=== PATIENT | male | born 1995 | race Caucasian/White ===

== ENCOUNTER 2016-08-16 15:20 | Emergency (ER) | payer OTHER ==
[2016-08-16] MEDS ORDERED: NORMAL SALINE 1000 ML 1,000 ML IV ONE ×3 (16:30→19:16)
[2016-08-16 16:48] LABS: APPEARANCE,URINE CLEAR; BILIRUBIN,URINE NEGATIVE (NEGATIVE); GLUCOSE, URINE NEGATIVE (NEGATIVE); KETONES,URINE NEGATIVE (NEGATIVE); LEUKOCYTE ESTERASE,URINE NEGATIVE (NEGATIVE); NITRITE,URINE NEGATIVE (NEGATIVE); PROTEIN,URINE NEGATIVE (NEGATIVE); URINE SPECIFIC GRAVITY 1.009; UROBILINOGEN,URINE NEGATIVE mg/dL (<2.0)
[2016-08-16 16:51] LABS: ABSOLUTE BASOPHILS # (AUTO) 0.1 10^3/uL (0.0-0.2); ABSOLUTE EOSINOPHILS # (AUTO) 0.2 10^3/uL (0.0-0.6); ABSOLUTE MONOCYTES (AUTO) 0.8 10^3/uL (0.1-1.4); ABSOLUTE NEUT (AUTO) 4.5 10^3/uL (1.7-8.2); EOSINOPHILS % (AUTO) 2.8 % (0-6); HEMOGLOBIN 14.5 g/dL (13.5-17.0); HGB HCT DIFFERENCE 0.5; LYMPHOCYTES % (AUTO) 26.3 % (13-45); MEAN CORPUSCULAR HEMOGLOBIN 29.7 pg (27.0-33.4); MEAN CORPUSCULAR HGB CONC 33.7 g/dL (32.0-36.0); MEAN CORPUSCULAR VOLUME 88 fl (80-97); MONOCYTES % (AUTO) 10.7 % (3-13); RED BLOOD COUNT 4.87 10^6/uL (4.35-5.55); RED CELL DISTRIBUTION WIDTH 13.2 % (11.5-14.0); SEGMENTED NEUTROPHILS % (AUTO) 59.2 % (42-78); WHITE BLOOD COUNT 7.6 10^3/uL (4.0-10.5)
--- NOTE | 2016-08-16 16:58 | RADIOLOGY REPORT (SQ) ---
EXAM DESCRIPTION: CHEST PA/LAT COMPLETED DATE/TIME: 08/16/2016 4:42 pm REASON FOR STUDY: CP COMPARISON: None. EXAM PARAMETERS: NUMBER OF VIEWS: two views TECHNIQUE: Digital Frontal and Lateral radiographic views of the chest acquired. RADIATION DOSE: NA LIMITATIONS: none FINDINGS: LUNGS AND PLEURA: No opacities, masses or pneumothorax. No pleural effusion. MEDIASTINUM AND HILAR STRUCTURES: No masses or contour abnormalities. HEART AND VASCULAR STRUCTURES: Heart normal size. No evidence for failure. BONES: No acute findings. HARDWARE: None in the chest. OTHER: No other significant finding. IMPRESSION: NO SIGNIFICANT RADIOGRAPHIC FINDING IN THE CHEST. TECHNICAL DOCUMENTATION: JOB ID: [id number] [employer]- All Rights Reserved
[2016-08-16 17:00] LABS: URINE BARBITURATES SCREEN NEGATIVE; URINE METHADONE SCREEN NEGATIVE; URINE OPIATES LOW NEGATIVE; URINE PHENCYCLIDINE SCREEN NEGATIVE
--- NOTE | 2016-08-16 17:01 | ER Document Report ---
ED Cardiac - General Information source: Patient TRAVEL OUTSIDE OF THE [place] IN LAST 30 DAYS: No - HPI Patient complains to provider of: Chest pain, Chest tightness Associated symptoms: Other - see above <JESICA RO - Last Filed: 08/16/16 21:14> <JACK HOLLINGSWORTH - Last Filed: 08/16/16 22:49> - General Chief Complaint: Chest Pain Stated Complaint: DIZZINESS Time Seen by Provider: 08/16/16 16:15 Notes: Patient is a 20 year old male who presents to the ED with complaints of intermittent chest pain for the past month. Patient states on or Wednesday of this last week he started having syncopal episodes. Patients [place] [facility] [place] feeling heart palpitations and states [place] "[place]". Today patient was walking to the fridge when symptoms presented. Patient states it feels like a tightness in his chest and sometimes a sharp pain. Patient states his symptoms are exacerbated by exertion and he also has SOB with exertion which is new for him. Patient is not on any daily medication and is not taking any supplements. Patient has never had surgery and states he is allergic to all "cillins". Patient has an extensive family history of heart disease. Patient denies any recent travel. Patient is not currently in any pain. No other concerns or complaints at this time. (JESICA RO) Past Medical History - General Information source: Patient - Social History Smoking Status: Never Smoker Chew tobacco use (# tins/day): Yes - dips Frequency of alcohol use: Social Drug Abuse: None Family History: Other - heart disease Patient has suicidal ideation: No Patient has homicidal ideation: No Renal/ Medical History: Denies: Hx Peritoneal Dialysis <JESICA RO - Last Filed: 08/16/16 21:14> Review of Systems - Review of Systems Constitutional: No symptoms reported EENT: No symptoms reported Cardiovascular: See HPI, Chest pain, Palpitations, Syncope Respiratory: See HPI, Short of breath Gastrointestinal: No symptoms reported Genitourinary: No symptoms reported Male Genitourinary: No symptoms reported Musculoskeletal: No symptoms reported Skin: No symptoms reported Hematologic/Lymphatic: No symptoms reported Neurological/Psychological: No symptoms reported <JESICA RO - Last Filed: 08/16/16 21:14> Physical Exam - General General appearance: Appears well, Alert In distress: None - HEENT Head: Normocephalic, Atraumatic Eyes: Normal Pupils: PERRL Ears: Other - cauliflower ear on the right - Respiratory Respiratory status: No respiratory distress Breath sounds: Normal - Cardiovascular Rhythm: Regular Heart sounds: Normal auscultation Murmur: No - Abdominal Inspection: Normal Distension: No distension Tenderness: Nontender - Back Back: Normal - Extremities General upper extremity: Normal inspection, Normal ROM General lower extremity: Normal inspection, Normal ROM - Neurological Neuro grossly intact: Yes Cognition: Normal Orientation: AAOx4 Peter Coma Scale Eye Opening: Spontaneous [place] Coma Scale Verbal: Oriented Peter Coma Scale Motor: Obeys Commands [place] Coma Scale Total: 15 Speech: Normal - Psychological Associated symptoms: Normal affect, Normal mood - Skin Skin Temperature: Warm Skin Moisture: Dry Skin Color: Normal <JESICA RO - Last Filed: 08/16/16 21:14> Course - Laboratory Result Diagrams: 08/16/16 16:28 08/16/16 16:28 <JESICA RO - Last Filed: 08/16/16 21:14> - Laboratory Result Diagrams: 08/16/16 16:28 08/16/16 16:28 <JACK HOLLINGSWORTH - Last Filed: 08/16/16 22:49> - Re-evaluation Re-evalutation: 08/16/16 21:14 Patient is now feeling worse than when he first came in. (JESICA RO) 08/16/16 22:02 Patient is a 20-year-old male who came in for dizziness, chest pressure, and was found to be in rhabdomyolysis. Patient was given 3 L of fluid. Patient's CK is downtrending. Patient was initially feeling better, and stated that he was feeling worse. Patient had apparently recently quickly eaten a big meal that his significant other brought for him. He feels better at this time. Discussed doing a CT of the patient's chest. He does not feel like this is necessary would like to go home. Of note, the patient started and called to see if he could go out in the field tomorrow. Informed him that I did not think that was a good idea due to the elevated CK, potential for further muscle breakdown in potential for acute kidney injury. Patient will be discharged home. He is not to take any supplements, drink any energy drinks, take any pills of any kind. Return if any worsening or concerning symptoms. Understands and agrees with plan. Stable for discharge. (JACK HOLLINGSWORTH ) - Vital Signs Vital signs: Temp Pulse Resp BP Pulse Ox 97.9 F 64 18 128/62 H 100 08/16/16 22:05 08/16/16 22:05 08/16/16 22:05 08/16/16 22:05 08/16/16 22:05 - Laboratory Laboratory results interpreted by me: 08/16/16 08/16/16 08/16/16 16:28 16:28 20:34 AST 199 H ALT 124 H Creatine Kinase 2257 H 1410 H CK-MB (CK-2) 7.30 H Discharge <JESIAC RO - Last Filed: 08/16/16 21:14> <JACK HOLLINGSWORTH - Last Filed: 08/16/16 22:49> - Discharge Clinical Impression: Atypical chest pain Rhabdomyolysis Qualifiers: Rhabdomyolysis type: non-traumatic Qualified Code(s): M62.82 - Rhabdomyolysis Condition: Stable Disposition: HOME, SELF-CARE Instructions: Dehydration ([facility]) Additional Instructions: Please drink plenty of fluids. Please avoid workouts for the next week. Please do not take any supplements. Forms: Return to Work Scribe Attestation: 08/16/16 22:49 I personally performed the services described in the documentation, reviewed and edited the documentation which was dictated to the scribe in my presence, and it accurately records my words and actions. (JACK HOLLINGSWORTH) Scribe Documentation - Scribe Written by Raza:: raza Bowman, 08/16/2016, 1728 acting as scribe for :: Mary <JESICA RO - Last Filed: 08/16/16 21:14>
[2016-08-16 17:10] LABS: ALANINE AMINOTRANSFERASE 124 U/L (21-72); ALBUMIN 4.5 g/dL (3.5-5.0); ALKALINE PHOSPHATASE 97 U/L (38-126); ANION GAP 10 (5-19); ASPARTATE AMINO TRANSFERASE 199 U/L (17-59); BILIRUBIN,DIRECT 0.4 mg/dL (0.0-0.4); BILIRUBIN,TOTAL 0.5 mg/dL (0.2-1.3); BLOOD UREA NITROGEN 18 mg/dL (7-20); CALCIUM 9.5 mg/dL (8.4-10.2); CARBON DIOXIDE 29 mmol/L (22-30); CHLORIDE 103 mmol/L (98-107); CREATININE RESULT 1.05 mg/dL (0.52-1.25); GLUCOSE 79 mg/dL (75-110); POTASSIUM 4.4 mmol/L (3.6-5.0); SODIUM 142.2 mmol/L (137-145); TOTAL PROTEIN 7.8 g/dL (6.3-8.2)
[2016-08-16 17:17] LABS: CREATINE KINASE 2257 U/L (55-170)
[2016-08-16 17:25] LABS: TROPONIN I < 0.012 ng/mL
--- NOTE | 2016-08-16 18:01 | EKG REPORT ---
SEVERITY:- NORMAL ECG - SINUS RHYTHM : Confirmed by: Ever Roman MD 16-Aug-2016 17:59:58
[2016-08-16] MEDS ORDERED: ONDANSETRON HCL INJ/PF 4 MG/2 ML SDV IV ONE (21:14)
[2016-08-16 22:05] VITALS: BP 132/65
== END 2016-08-16 22:05 | disposition home or self-care (01) ==
LOC: ER 15:20
DX: M62.82 Rhabdomyolysis (principal); R07.89 Other chest pain; R55 Syncope and collapse; R06.02 Shortness of breath; R00.2 Palpitations; M95.11 Cauliflower ear, right ear; Z88.0 Allergy status to penicillin; Z82.49 Family history of ischemic heart disease and other diseases of the circulatory system; Z72.0 Tobacco use
CPT/HCPCS: 93005; 99285; 36415; 82553; 82550; 84443; 85025; 80053; 81001; 84484; 80307; 71020; 93010; J7030

== ENCOUNTER 2016-10-26 17:43 | Emergency (ER) | payer OTHER ==
--- NOTE | 2016-10-26 18:23 | ER Document Report ---
ED Medical Screen (RME) - General Chief Complaint: Chest Pain Stated Complaint: CHEST DISCOMFORT Time Seen by Provider: 10/26/16 18:16 Mode of Arrival: Ambulatory Information source: Patient Notes: 21-year-old male presents with complaints of chest pain intermittently over the past 2 months. Patient was seen here with rhabdo elevated liver enzymes, has been seen at the level multiple times for similar complaints, patient states he is supposed to have an echo performed I have greeted and performed a rapid initial assessment of this patient. A comprehensive ED assessment and evaluation of the patient, analysis of test results and completion of the medical decision making process will be conducted by additional ED providers. PHYSICAL EXAMINATION: GENERAL: Well-appearing, well-nourished and in no acute distress. HEAD: Atraumatic, normocephalic. EYES: Pupils equal round extraocular movements intact, conjunctiva are normal. ENT: Nares patent NECK: Normal range of motion LUNGS: No respiratory distress Musculoskeletal: Normal range of motion NEUROLOGICAL: Normal speech, normal gait. PSYCH: Normal mood, normal affect. SKIN: Warm, Dry, normal turgor, no rashes or lesions noted. TRAVEL OUTSIDE OF THE [place] IN LAST 30 DAYS: No - Related Data Allergies/Adverse Reactions: pcn Allergy (Uncoded 10/26/16 17:52) Past Medical History - Social History Frequency of alcohol use: Rare Drug Abuse: None Renal/ Medical History: Denies: Hx Peritoneal Dialysis Physical Exam - Vital signs Vitals: Temp Pulse Resp BP Pulse Ox 98.8 F 76 18 143/77 H 98 10/26/16 17:55 10/26/16 17:55 10/26/16 17:55 10/26/16 17:55 10/26/16 17:55 Course - Vital Signs Vital signs: Temp Pulse Resp BP Pulse Ox 98.8 F 76 18 143/77 H 98 10/26/16 17:55 10/26/16 17:55 10/26/16 17:55 10/26/16 17:55 10/26/16 17:55
[2016-10-26 18:46] LABS: ABSOLUTE BASOPHILS # (AUTO) 0.1 10^3/uL (0.0-0.2); ABSOLUTE EOSINOPHILS # (AUTO) 0.2 10^3/uL (0.0-0.6); ABSOLUTE LYMPHOCYTES (AUTO) 2.4 10^3/uL (0.5-4.7); ABSOLUTE MONOCYTES (AUTO) 0.9 10^3/uL (0.1-1.4); BASOPHILS % (AUTO) 0.7 % (0-2); EOSINOPHILS % (AUTO) 2.1 % (0-6); HEMOGLOBIN 15.4 g/dL (13.5-17.0); HGB HCT DIFFERENCE 3.2; LYMPHOCYTES % (AUTO) 28.5 % (13-45); MEAN CORPUSCULAR HEMOGLOBIN 30.8 pg (27.0-33.4); MEAN CORPUSCULAR HGB CONC 35.8 g/dL (32.0-36.0); MEAN CORPUSCULAR VOLUME 86 fl (80-97); MONOCYTES % (AUTO) 10.6 % (3-13); RED BLOOD COUNT 5.01 10^6/uL (4.35-5.55); RED CELL DISTRIBUTION WIDTH 13.1 % (11.5-14.0); SEGMENTED NEUTROPHILS % (AUTO) 58.1 % (42-78); WHITE BLOOD COUNT 8.6 10^3/uL (4.0-10.5)
[2016-10-26 19:08] LABS: ALANINE AMINOTRANSFERASE 73 U/L (21-72); ALKALINE PHOSPHATASE 108 U/L (38-126); ANION GAP 12 (5-19); ASPARTATE AMINO TRANSFERASE 36 U/L (17-59); BILIRUBIN,DIRECT 0.4 mg/dL (0.0-0.4); BILIRUBIN,TOTAL 0.4 mg/dL (0.2-1.3); BLOOD UREA NITROGEN 18 mg/dL (7-20); CALCIUM 10.4 mg/dL (8.4-10.2); CARBON DIOXIDE 29 mmol/L (22-30); CHLORIDE 101 mmol/L (98-107); CREATINE KINASE 163 U/L (55-170); CREATININE RESULT 1.11 mg/dL (0.52-1.25); GLUCOSE 97 mg/dL (75-110); POTASSIUM 4.6 mmol/L (3.6-5.0); SODIUM 141.7 mmol/L (137-145); TOTAL PROTEIN 8.2 g/dL (6.3-8.2)
[2016-10-26 19:19] LABS: CREATINE KINASE MB 1.45 ng/mL (<4.55)
[2016-10-26 19:21] LABS: TROPONIN I < 0.012 ng/mL
--- NOTE | 2016-10-26 19:26 | EKG REPORT ---
SEVERITY:- NORMAL ECG - SINUS RHYTHM : Confirmed by: Ever Roman MD 26-Oct-2016 19:25:19
--- NOTE | 2016-10-26 19:56 | RADIOLOGY REPORT (SQ) ---
EXAM DESCRIPTION: CTA CHEST COMPLETED DATE/TIME: 10/26/2016 7:07 pm REASON FOR STUDY: sob chest pain COMPARISON: Chest x-ray dated August 2016 TECHNIQUE: CT scan of the chest performed using helical scanning technique with dynamic intravenous contrast injection. Images reviewed with lung, soft tissue and bone windows. Reconstructed coronal and sagittal MPR images reviewed. Additional 3 dimensional post-processing performed to develop Maximal Intensity Projection images (ME P). All images stored on PACS. All CT scanners at this facility use dose modulation, iterative reconstruction, and/or weight based d osing when appropriate to reduce radiation dose to as low as reasonably achievable (ALARA). [facility]: Dose Right [facility]: CareDose [facility]: Dose Right [facility]: Teradose 4D [facility]: BrickTrends CONTRAST TYPE AND DOSE: contrast/concentration: Isovue 370.00 mg/ml; Total Contrast Delivered: 78.0 ml; Total Saline Delivered: 75.0 ml Contrast bolus optimized for the pulmonary arteries. Not diagnostic for the aorta. RENAL FUNCTION: None required. The patient is less than 50 years old. RADIATION DOSE: Up-to-date CT equipment and radiation dose reduction techniques were employed. CTDIv ol: 16.5 - 17.8 mGy. DLP: 648 mGy-cm. . LIMITATIONS: None. FINDINGS: LUNGS AND PLEURA: No masses, infiltrates, pneumothorax. No pleural effusions, calcificati ons. AORTA AND GREAT VESSELS: No aneurysm. Contrast bolus not optimized for the aorta. HEART: No pericardial effusion. No significant coronary artery calcifications. PULMONARY ARTERIES: No emboli visualized in the main pulmonary arteries or the segmental branches. HILAR AND MEDIASTINAL STRUCTURES: Soft tissue density is identified in the anterior mediastinum most consistent with thymic tissue although other etiologies cannot be excluded. HARDWARE: None in the chest. UPPER ABDOMEN: No significant findings. Limited exam. THYROID AND OTHER SOFT TISSUES: No masses. No adenopathy. BONES: No acute or significant finding. 3D MIPS: Confirm above findings. OTHER: No other significant finding. IMPRESSION: No acute consolidations or pleural effusions are identified. No evidence for pulmonary embolic disease. Other findings as noted above. COMMENT: Quality ID # [id number]: Final reports with documentation of one or more dose reduction techniques (e.g., Automated exposure control, adjustment of the mA and/or kV according to patient size, use of iterative reconstruction technique) TECHNICAL DOCUMENTATION: JOB ID: [id number] [facility] [employer]- All Rights Reserved
--- NOTE | 2016-10-26 20:24 | ER Document Report ---
ED General - General Chief Complaint: Chest Pain Stated Complaint: CHEST DISCOMFORT Time Seen by Provider: 10/26/16 18:16 Mode of Arrival: Ambulatory TRAVEL OUTSIDE OF THE [place] IN LAST 30 DAYS: No - HPI Patient complains to provider of: Chest discomfort Notes: Patient coming in for evaluation of chest discomfort. 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 Patient has had multiple evaluations at [facility] with no clear-cut etiology. Patient states he is working on scheduling a echocardiogram patient otherwise denies any recent travel denies any fevers chills nausea vomiting states pain is always constant with no relief does not exacerbate with touch palpation exacerbated with activities. Patient currently states that he is not performing any PT. Denies any other medical history denies smoking alcohol use or drugs - Related Data Allergies/Adverse Reactions: pcn Allergy (Uncoded 10/26/16 17:52) Past Medical History - General Information source: Patient - Social History Smoking Status: Never Smoker Frequency of alcohol use: Rare Drug Abuse: None Family History: Other - heart disease Patient has suicidal ideation: No Renal/ Medical History: Denies: Hx Peritoneal Dialysis Review of Systems - Review of Systems Constitutional: No symptoms reported EENT: No symptoms reported Cardiovascular: Chest pain Respiratory: No symptoms reported Gastrointestinal: No symptoms reported Genitourinary: No symptoms reported Male Genitourinary: No symptoms reported Musculoskeletal: No symptoms reported Skin: No symptoms reported Hematologic/Lymphatic: No symptoms reported Neurological/Psychological: No symptoms reported -: Yes All other systems reviewed and negative Physical Exam - Vital signs Vitals: Temp Pulse Resp BP Pulse Ox 98.8 F 76 18 143/77 H 98 10/26/16 17:55 10/26/16 17:55 10/26/16 17:55 10/26/16 17:55 10/26/16 17:55 Interpretation: Normal - General General appearance: Appears well, Alert - HEENT Head: Normocephalic, Atraumatic Eyes: Normal Pupils: PERRL - Respiratory Respiratory status: No respiratory distress Chest status: Nontender Breath sounds: Normal Chest palpation: Normal - Cardiovascular Rhythm: Regular Heart sounds: Normal auscultation Murmur: No - Abdominal Inspection: Normal Distension: No distension Bowel sounds: Normal Tenderness: Nontender Organomegaly: No organomegaly - Back Back: Normal, Nontender - Extremities General upper extremity: Normal inspection, Nontender, Normal color, Normal ROM , Normal temperature General lower extremity: Normal inspection, Nontender, Normal color, Normal ROM , Normal temperature, Normal weight bearing. No: Ara's sign - Neurological Neuro grossly intact: Yes Cognition: Normal Orientation: AAOx4 Peter Coma Scale Eye Opening: Spontaneous [place] Coma Scale Verbal: Oriented Peter Coma Scale Motor: Obeys Commands [place] Coma Scale Total: 15 Speech: Normal Motor strength normal: LUE, RUE, LLE, RLE Sensory: Normal - Psychological Associated symptoms: Normal affect, Normal mood - Skin Skin Temperature: Warm Skin Moisture: Dry Skin Color: Normal Course - Re-evaluation Re-evalutation: 10/26/16 22:39 The patient has atypical chest pain as the patient's chest pain is not suggestive of pulmonary embolus, cardiac ischemia, aortic dissection, or other serious etiology. Given the extremely low risk of these diagnoses further testing and evaluation for these possibilities does not appear to be indicated at this time. The patient has been instructed to return if the symptoms worsen or change in any way. Review results of CT scan showing tissue in the mediastinum consistent with thalamic tissue however encouraged patient to take results to his health home care specialist for further evaluation. - Vital Signs Vital signs: Temp Pulse Resp BP Pulse Ox 98.1 F 88 18 135/84 H 98 10/26/16 20:53 10/26/16 20:53 10/26/16 20:53 10/26/16 20:53 10/26/16 20:53 - Laboratory Result Diagrams: 10/26/16 18:30 10/26/16 18:30 Laboratory results interpreted by me: 10/26/16 18:30 Calcium 10.4 H ALT 73 H Discharge - Discharge Clinical Impression: Mediastinal tissue on CT scan Chest pain Qualifiers: Chest pain type: unspecified Qualified Code(s): R07.9 - Chest pain, unspecified Condition: Good Disposition: HOME, SELF-CARE Instructions: Anti-Inflammatory Medication ([facility]), Chest Pain of Unclear Cause ( [facility]) Additional Instructions: At this time your EKG and laboratory studies not show any specific etiologies for your chest pain. However recommend she follow-up with your primary care physician. Take medications as prescribed. Your CT scan does show some tissue in the anterior or the front of the mediastinum the sac that contains the heart and esophagus in the chest. More likely this is your thymus which is organ responsible for strengthening your immune system. I would highly recommend following up with your healthcare provider for further evaluation return to ER symptoms worsen Prescriptions: Ibuprofen [Motrin 800 mg Tablet] 800 mg PO Q8H PRN #30 tab PRN Reason:
[2016-10-26 20:53] VITALS: BP 135/84
== END 2016-10-26 20:52 | disposition home or self-care (01) ==
LOC: ER 17:43
DX: R07.89 Other chest pain (principal); Z88.0 Allergy status to penicillin; Z82.49 Family history of ischemic heart disease and other diseases of the circulatory system
CPT/HCPCS: 36415; 71275; 80053; 82550; 82553; 84484; 85025; 93005; 93010; 99285